=== PATIENT | male | born 1985 | race Two or more races ===

== ENCOUNTER 2023-09-29 22:26 | Emergency (ER) | payer MEDICAID ==
[~2023-09-29] VITALS: Ht 160 cm; Wt 88.5 kg
[2023-09-30 01:14] VITALS: BP 101/80; TEMP 98.1; O2SAT 98
== END 2023-09-30 01:16 | disposition home or self-care (01) ==
LOC: ER 22:31
DX: M54.50 Low back pain, unspecified (principal)